=== PATIENT | female | born 1990 | race Caucasian/White ===

== ENCOUNTER 2016-09-20 13:38 | Emergency (ER) | payer MEDICAID ==
--- NOTE | 2016-09-20 14:44 | EDM.PDOC ---
ED HPI ENT - General Chief Complaint: ENT Problem Stated Complaint: COUGH Time Seen by Provider: 09/20/16 14:05 Source: Reports: Patient History Limitations: Reports: No limitations - History of Present Illness INITIAL COMMENTS - FREE TEXT/NARRATIVE: 26 yo smoking female comes in today with a cough, laryngitis, and a recent fever. Did have a flu shot. Sx's for a few days. Has not been seen before today for this. Has clear rhinorrhea. No self tx. Symptom Onset Date: 09/18/16 Timing/Duration: Reports: Day(s): Severity: mild Location: Reports: throat Quality: Reports: Dull Improves with: Reports: None Worsens with: Reports: Other (coughing) Associated symptoms: Reports: cough, sputum, fever/chills (now resolved.) Treatment(s) OUTGOING INSPECTOR: Reports: Other (see below) (none) - Related Data Allergies/ADRs: Allergies Allergy/AdvReac Type Severity Reaction Status Date / Time No Known Allergies Allergy Verified 09/20/16 14:12 Home Meds: Home Meds Albuterol [Ventolin HFA] 2 inh IH Q4H PRN #1 inhaler 09/20/16 [Rx] Codeine/guaiFENesin [Robitussin AC] 5 - 10 ml PO Q4H PRN #1 bottle 09/20/16 [Rx] Norgestimate-Ethinyl Estradiol [Sprintec] 1 tab PO BEDTIME 09/20/16 [History] Past Medical History Psychiatric History: Reports: Anxiety, Depression - Infectious Disease History Infectious Disease History: Reports: Chicken pox Social & Family History - Tobacco Use Smoking Status *Q: Current Every Day Smoker Years of Tobacco use: 5 Packs/Tins Daily: 0.2 - Recreational Drug Use Recreational Drug Use: No ED ROS ENT - Review of Systems Review Of Systems: See Below Constitutional: Reports: no symptoms, fever (now gone), chills (now gone) HEENT: Reports: Rhinitis, Throat pain. Denies: Dental pain, Ear discharge, Ear pain, Eye discharge, Nose pain, Sinus problem, Throat swelling Respiratory: Reports: Cough, Sputum. Denies: Wheezing, Pleuritic Chest Pain, Hemoptysis Cardiovascular: Reports: No symptoms Endocrine: Reports: no symptoms GI/Abdominal: Reports: No symptoms : Reports: no symptoms Musculoskeletal: Reports: no symptoms Skin: Reports: no symptoms Neurological: Reports: No Symptoms Psychiatric: Reports: No symptoms ED EXAM, ENT - Physical Exam Exam: See Below Exam Limited By: No limitations General Appearance: alert, WD/WN, no apparent distress, obese Eye Exam: bilateral eye: normal inspection Ears: normal external exam, normal canal, hearing grossly normal, normal TMs Nose: normal inspection, no blood, clear rhinorrhea Mouth/Throat: Normal inspection, Normal gums, Normal lips, Normal oropharynx Head: atraumatic, normocephalic Neck: normal inspection, supple Respiratory/Chest: no respiratory distress, no accessory muscle use, rhonchi ( scattered). No: decreased breath sounds, crackles, rales, wheezing, accessory muscle use, retractions Cardiovascular: regular rate, rhythm, no edema GI/Abdominal: normal bowel sounds, soft, non tender, no distention Back: normal inspection Extremities: normal inspection, normal range of motion, non-tender, no pedal edema Neurological: alert, oriented, CN II-XII intact, normal cognition, no motor/ sensory deficits Psychiatric: normal affect, normal mood Skin: Warm, Dry, Intact, Normal color, No rash Lymphatic: no adenopathy Course - Vital Signs Last Recorded V/S: Last Vital Signs Temp 37.1 C 09/20/16 14:10 Pulse 102 H 09/20/16 14:10 Resp 20 09/20/16 14:10 BP 132/90 09/20/16 14:10 Pulse Ox 95 09/20/16 14:10 - Orders/Labs/Meds Labs: Laboratory Tests 09/20/16 Range/Units 14:35 WBC 5.5 (4.5-12.0) X10-3/uL RBC 4.73 (3.23-5.20) x10(6)uL Hgb 14.1 (11.5-15.5) g/dL Hct 41.5 (30.0-51.3) % MCV 87.7 (80-96) fL MCH 29.7 (27.7-33.6) pg MCHC 33.9 (32.2-35.4) g/dL RDW 11.6 (11.5-15.5) % Plt Count 209 (125-369) X10(3)uL Departure - Departure Time of Disposition: 15:10 Disposition: Home, Self-Care 01 Condition: good Clinical Impression: Viral respiratory illness, Laryngitis Prescriptions: Albuterol [Ventolin HFA] 2 inh IH Q4H PRN #1 inhaler PRN Reason: Cough Codeine/guaiFENesin [Robitussin AC] 5 - 10 ml PO Q4H PRN #1 bottle PRN Reason: Cough Referrals: Norman Marmolejo MD [Primary Care Provider] - Additional Instructions: No smoking. Use albuterol and robitussin as needed for coughing/sore throat. Acetaminophen as needed. Drink ample fluids. Use a cool mist humidifier. Recheck with your doctor if not improving.
[2016-09-20 15:32] VITALS: BP 132/91
== END 2016-09-20 15:26 | disposition home or self-care (01) ==
LOC: FB.ED 13:38
DX: J04.0 Acute laryngitis (principal); J98.9 Respiratory disorder, unspecified; F17.210 Nicotine dependence, cigarettes, uncomplicated; F41.9 Anxiety disorder, unspecified; F32.9 Major depressive disorder, single episode, unspecified; Z79.899 Other long term (current) drug therapy
CPT/HCPCS: 36415; 85027; 99283

== ENCOUNTER 2016-12-27 06:43 | Day surgery (SDC) | payer MEDICAID ==
[2016-12-27] MEDS ORDERED: Sodium Chloride 0.9% 10 ML Syringe FLUSH PRN (06:45)
[2016-12-27] MEDS ORDERED: Lactated Ringers 1,000 ML IV SCH (06:45)
[2016-12-27] MEDS ORDERED: Midazolam 1 MG/ML 2 ML SDV IV ONE (08:05)
[2016-12-27] MEDS ORDERED: Propofol 200 MG/20 ML SDV IV ONE (08:05)
[2016-12-27] MEDS ORDERED: Lidocaine 2% 100 MG/5 ML Syringe IVPUSH ONE (08:05)
--- NOTE | 2016-12-27 08:45 | PCM.OPNOTE ---
- General Post-Op/Procedure Note Date of Surgery/Procedure: 12/27/16 Operative Procedure(s): egd with bx. c scope with bx Findings: gastritis esopagitis normal colon Pre Op Diagnosis: abd pain. diarrhea Post-Op Diagnosis: gastritis. esophagitis. normal colon Anesthesia Technique: MAC Primary Surgeon: Beny Giraldo Anesthesia Provider: Kash Eng Pathology: duodenum stomach esophagus random colon bx Complications: None Condition: Good Free Text/Narrative:: see dictation
[2016-12-27 11:50] VITALS: BP 130/86
--- NOTE | 2016-12-27 14:52 | OR ---
DATE OF OPERATION: 12/27/2016 SURGEON: Beny Giraldo MD PROCEDURE PERFORMED: Cold esophagogastroduodenoscopy with cold forceps biopsy and colonoscopy with biopsy. INDICATIONS FOR PROCEDURE: This is a 26-year-old white female, who is referred with a history of a diffuse crampy abdominal pain, reflux, and diarrhea. We were unable to pin down any direct etiology, and therefore, I recommended upper and lower endoscopy. DESCRIPTION OF PROCEDURE: After an excellent IV sedation was administered, a bite block was inserted. The flexible endoscope was passed without difficulty down the patient's esophagus into the stomach. The stomach was insufflated. Scope was passed through the pylorus to the second portion of duodenum and slowly withdrawn. The following findings were noted. Duodenum was grossly unremarkable. Biopsies were taken to rule out celiac disease. In the stomach, some mild gastritis was noted. Biopsies were taken. GE junction, mild erythema suggestive of reflux esophagitis. Biopsies were taken. The remainder of the esophageal exam was unremarkable. The stomach was deflated, and scope was removed. Our attention was then turned to the patient's colon. Digital rectal exam was performed. No marked abnormality was noted. Flexible colonoscope was inserted, advanced without difficulty to the patient's cecum. We were unable to intubate the terminal ileum. The scope was withdrawn and the following findings were noted. Ascending colon, unremarkable. Random biopsies were taken. Transverse colon, unremarkable. Random biopsies were taken. Descending colon, unremarkable. Random biopsies were taken. Sigmoid and rectum unremarkable. Random biopsies were taken. The colon was deflated as the scope was removed. The patient tolerated the procedure well and was taken recovery room. /[id number] /MODL
== END 2016-12-27 09:52 | disposition home or self-care (01) ==
LOC: FB.SDS 06:43
PROVIDERS: ATTEND Surgery
PROC: 0DB48ZX Excision of Esophagogastric Junction, Via Natural or Artificial Opening Endoscopic, Diagnostic (ICD-10-PCS; principal; 2016-12-27)
PROC: 0DBK8ZX Excision of Ascending Colon, Via Natural or Artificial Opening Endoscopic, Diagnostic (ICD-10-PCS; 2016-12-27)
PROC: 0DBP8ZX Excision of Rectum, Via Natural or Artificial Opening Endoscopic, Diagnostic (ICD-10-PCS; 2016-12-27)
PROC: 0DBN8ZX Excision of Sigmoid Colon, Via Natural or Artificial Opening Endoscopic, Diagnostic (ICD-10-PCS; 2016-12-27)
PROC: 0DBL8ZX Excision of Transverse Colon, Via Natural or Artificial Opening Endoscopic, Diagnostic (ICD-10-PCS; 2016-12-27)
DX: R19.7 Diarrhea, unspecified (principal); R10.84 Generalized abdominal pain; K29.50 Unspecified chronic gastritis without bleeding; K22.70 Barrett's esophagus without dysplasia
CPT/HCPCS: 43239; 45380; 81025; 88305; 88313; 88342; J2250; J2704; J7120